=== PATIENT | female | born 2000 | race Two or more races ===

== ENCOUNTER 2025-03-18 03:08 | Inpatient (IN) | payer OTHER ==
[~2025-03-18] VITALS: Ht 152.4 cm; Wt 78.9 kg
[2025-03-18 02:48] VITALS: BP 116/74
[2025-03-18] MEDS ORDERED: IRON236 MG PO (03:10)
[2025-03-18] MEDS ORDERED: PRENATAL TABLE1 EAC1 PO (03:11)
[2025-03-18] MEDS ORDERED: MORPHINE SULFATE 4 MG/ML CARTRIDGE IV PRN (03:15)
[2025-03-18] MEDS ORDERED: RINGERS SOLUTION,LACTATED 1,000 ML IV SCH (03:15)
[2025-03-18 03:42] LABS: BASO % 0.6 % (0.1-1.2); EOS # 0.46 (0.04-0.54); EOS % 4.6 % (0.7-7.0); LYMPH # 1.73 (1.18-3.74); LYMPH % 17.3 % (19.3-53.1); MEAN PLATELET VOLUME 9.60 fl (9.4-12.4); MONO # 0.90 (0.24-0.82); MONO % 9.0 % (4.7-12.5); NEUT # 6.70 (1.56-6.13); NEUT % 66.9 % (34.0-71.1); RED CELL DISTRIBUTION WIDTH 13.9 % (11.6-14.4)
[2025-03-18 04:09] LABS: ALT/SGPT 24.0 U/L (12-78); AST/SGOT 26.0 U/L (15-37); BILIRUBIN TOTAL 0.18 mg/dL (0.3-1.2); BUN CREA RATIO 20.0 (7.0-25.0); CREATININE SERUM 0.45 mg/dL (0.55-1.02); GFR 168.42; GLOBULINA 3.5 G/DL (2.4-3.5); GLUCOSE FASTING 92.0 mg/dL (65-100); OSMOLALITY SERUM 278.0 MOSM/KG (275-295)
[2025-03-18 04:12] LABS: INR 0.94
[2025-03-18] MEDS ORDERED: OXYTOCIN 20 UNITS/500ML RL PIGGYBAG IV ONE (07:57)
[2025-03-18] MEDS ORDERED: OXYTOCIN 20 UNITS/1000ML RL PIGGYBAG IV ONE (10:00)
[2025-03-18] MEDS ORDERED: ERYTHROMYCIN BASE OPHT 1GM EACH TUBE OP ONE ×2 (10:00→13:30)
[2025-03-18] MEDS ORDERED: CHLORHEXIDINE GLUCONATE 120 ML BOTTLE TOP ONE ×2 (10:00→13:30)
[2025-03-18] MEDS ORDERED: LIDOCAINE HCL 1% 10ML VIAL ONE (10:01)
[2025-03-18] MEDS ORDERED: OXYTOCIN 20 UNITS/1000ML RL PIGGYBAG IV SCH (13:30)
[2025-03-18] MEDS ORDERED: LIDOCAINE HCL 1% 10ML VIAL IJ ONE (13:30)
[2025-03-18 13:47] VITALS: BP 121/75
[2025-03-18 16:21] VITALS: BP 113/69
[2025-03-19 00:03] VITALS: BP 108/67
[2025-03-19 08:19] VITALS: BP 109/74
[2025-03-19] MEDS ORDERED: FF) RHO(D) IMMUNE GLOBULIN (POM) IM ONE (08:45)
[2025-03-19 16:34] VITALS: BP 96/52
[2025-03-20 00:44] VITALS: BP 132/82
[2025-03-20 08:47] VITALS: BP 111/68; O2SAT 98
== END 2025-03-20 15:20 | disposition home or self-care (01) | DRG 807 ==
LOC: LDR 03:08 → OB/GYN 03:08
PROVIDERS: ADMIT Obstetrics & Gynecology; ATTEND Obstetrics & Gynecology
PROC: 10E0XZZ Delivery of Products of Conception, External Approach (ICD-10-PCS; principal; 2025-03-18)
PROC: 0W8NXZZ Division of Female Perineum, External Approach (ICD-10-PCS; 2025-03-18)
PROC: 4A1HXCZ Monitoring of Products of Conception, Cardiac Rate, External Approach (ICD-10-PCS; 2025-03-18)
DX: O69.81X0 Labor and delivery complicated by cord around neck, without compression, not applicable or unspecified (principal); Z37.0 Single live birth; Z3A.38 38 weeks gestation of pregnancy